=== PATIENT | female | born 1935 | race Caucasian/White ===

== ENCOUNTER 2018-12-12 14:41 | Inpatient (IN) | payer OTHER ==
[~2018-12-12] VITALS: Ht 143.3 cm; Wt 68.0 kg
[~2018-12-12 14:41] MED LIST: APIX5TAB PO; Acetaminophen PO
[2018-12-12 14:57] VITALS: Ht 143.3 cm; Wt 68.0 kg
[2018-12-12] MEDS ORDERED: ONDANSETRON 4 MG INJ IV STA (18:14)
[2018-12-12] MEDS ORDERED: morphine 4 MG/ML VIAL IV STA (18:14)
[2018-12-12] MEDS ORDERED: APIXABAN 5 MG TABLET PO ONE (20:00)
[2018-12-12] MEDS ORDERED: ONDANSETRON 4 MG INJ IV PRN (21:00)
[2018-12-12] MEDS ORDERED: ACETAMINOPHEN 325 MG TAB PO PRN (21:00)
[2018-12-12] MEDS ORDERED: ACETAMINOPHEN 500 MG TAB PO PRN (22:30)
[2018-12-12 23:30] VITALS: BP 122/68; PULSE 82; RESP 18
[2018-12-13 08:01] VITALS: BP 115/62; PULSE 103; RESP 16
[2018-12-13] MEDS: APIXABAN 5 MG TABLET PO SCH ×2 (08:13→21:14)
[2018-12-13 08:15] VITALS: PULSE 86
[2018-12-13 14:12] VITALS: BP 105/54; PULSE 82; RESP 16
[2018-12-13] MEDS ORDERED: hydrALAzine 20 MG INJ IV PRN (14:30)
[2018-12-13 20:00] VITALS: BP 99/53; PULSE 69; RESP 18
[2018-12-14 02:00] VITALS: BP 136/64; PULSE 75; RESP 17
[2018-12-14 07:46] VITALS: BP 98/56; PULSE 71; RESP 16
[2018-12-14] MEDS: APIXABAN 5 MG TABLET PO SCH ×2 (08:13→21:13)
[2018-12-14 14:02] VITALS: BP 96/51; PULSE 78; RESP 18
[2018-12-14 20:31] VITALS: BP 139/62; PULSE 82; RESP 19
[2018-12-15 01:57] VITALS: BP 97/52; PULSE 65; RESP 18
[2018-12-15 02:13] VITALS: BP 124/70; PULSE 89; RESP 18
[2018-12-15 08:00] VITALS: BP 129/66; PULSE 76; RESP 18
[2018-12-15] MEDS: APIXABAN 5 MG TABLET PO SCH ×2 (08:25→20:04)
[2018-12-15 14:00] VITALS: BP 130/62; PULSE 84; RESP 18
[2018-12-15 20:16] VITALS: BP 102/56; PULSE 85; RESP 18
[2018-12-20] MEDS ORDERED: APIXABAN 5 MG TABLET PO SCH ×2 (09:00)
== END 2018-12-15 21:16 | disposition home or self-care (01) | DRG 301 ==
LOC: E/R 14:41 → PP2 20:32
PROVIDERS: ADMIT Internal Medicine; ATTEND Internal Medicine
DX: I82.4Z2 Acute embolism and thrombosis of unspecified deep veins of left distal lower extremity (principal); I10 Essential (primary) hypertension
CPT/HCPCS: 36415; 73562; 80048; 80053; 84484; 85025; 85610; 85730; 93005; 93971; 96374; 96375; J2270; J2405